=== PATIENT | female | born 1995 | race Caucasian/White ===

== ENCOUNTER 2017-05-06 08:51 | Outpatient (CLI) | payer OTHER | END 2017-05-06 08:52 | disposition critical access hospital (66) | LOC: EMS 08:51 | PROVIDERS: ATTEND Surgery | DX: O46.91 Antepartum hemorrhage, unspecified, first trimester (principal) | CPT/HCPCS: A0425; A0427 ==

== ENCOUNTER 2017-05-06 09:15 | Emergency (ER) | payer OTHER ==
--- NOTE | 2017-05-06 10:29 | ED Physician Documentation ---
PD HPI FEMALE - Stated complaint Stated Complaint: FEMALE /8WEEK PREG - Chief complaint Chief Complaint: Abd Pain - History obtained from History obtained from: Patient - History of Present Illness Timing - onset: How many weeks ago (1) Timing - duration: Weeks (1) Timing - details: Abrupt onset, Still present Associated symptoms: Pelvic pain, Vaginal bleeding Contributing factors: OB-INTERNAL AUDIT SENIOR MANAGER History: G (1), P (0) Similar symptoms before: Has not had sx before Recently seen: Not recently seen - Additional information Additional information: 21-year-old female who believes she is about 8 weeks has developed some spotting about 1 week ago and she is subsequently today developed some yves bleeding and cramping. She states that she did notice about a week ago that the breast tenderness that she was having seemed to recede. She is not having faintness. Review of Systems Constitutional: denies: Fever Nose: denies: Congestion Throat: denies: Sore throat Cardiac: denies: Chest pain / pressure Respiratory: denies: Cough GI: reports: Abdominal Pain. denies: Nausea, Vomiting : denies: Dysuria, Frequency PD PAST MEDICAL HISTORY - Past Medical History Past Medical History: No - Past Surgical History Past Surgical History: No - Present Medications Home Medications: Ambulatory Orders Medication Instructions Recorded Confirmed No Known Home Medications [No 05/06/17 05/06/17 Known Home Medications] - Allergies Allergies/Adverse Reactions: Allergies Allergy/AdvReac Type Severity Reaction Status Date / Time No Known Drug Allergies Allergy Verified 05/06/17 09:18 - Social History Does the pt smoke?: No Smoking Status: Never smoker Does the pt have substance abuse?: No PD ED PE NORMAL - Vitals Vital signs reviewed: Yes (Tachycardic and hypertensive) - General General: No acute distress, Well developed/nourished - HEENT HEENT: Atraumatic, PERRL, EOMI - Neck Neck: Supple, no meningeal sign - Cardiac Cardiac: RRR, No murmur - Respiratory Respiratory: No respiratory distress, Clear bilaterally - Abdomen Abdomen: Soft, Non tender - Back Back: No CVA TTP, No spinal TTP - Derm Derm: Normal color, Warm and dry, No rash - Extremities Extremities: No deformity, No edema - Neuro Neuro: No motor deficit, No sensory deficit - Psych Psych: Normal mood, Normal affect Results - Vitals Vitals: Vital Signs - 24 hr 05/06/17 05/06/17 05/06/17 09:15 09:43 11:52 Temperature 37.3 C 37.1 C Heart Rate 109 H 111 H Respiratory 18 18 Rate Blood Pressure 154/80 H 136/83 H O2 Saturation 98 98 Oxygen O2 Source Room air - Labs Labs: Laboratory Tests 05/06/17 05/06/17 11:15 11:40 HCG, Quant 1161.55 Urine Color YELLOW Urine Clarity CLEAR Urine pH 6.5 Ur Specific [place] <=1.005 Urine Protein NEGATIVE Urine Glucose (UA) NEGATIVE Urine Ketones NEGATIVE Urine Occult Blood LARGE H Urine Nitrite NEGATIVE Urine Bilirubin NEGATIVE Urine Urobilinogen 0.2 (NORMAL) Ur Leukocyte Esterase NEGATIVE Urine RBC 6-10 H Urine WBC 0-3 Ur Squamous Epith Cells FEW Squamous Urine Bacteria Few Ur Microscopic Review INDICATED Urine Culture Comments NOT INDICATED - Rads (name of study) Pelvic ultrasound Radiology: Prelim report reviewed (Impression: Tiny fluid collection in Endo, may be early gestational sac, but too early to see yolk sac or pole. Follow-up serial quantitative beta-hCG rescan in 2 weeks for viability if clinically indicated.), EMP read indepedently, See rad report PD MEDICAL DECISION MAKING - ED course Complexity details: reviewed results, re-evaluated patient, considered differential, d/w patient ED course: 21-year-old female with early as bleeding and cramping consistent with early miscarriage and she has findings on her ultrasound to suggest a may be in the uterus and we will follow quantitative hCG. I suspect with the patient's reduction in breast tenderness that this is a miscarriage. Departure - Departure Disposition: 01 Home, Self Care Clinical Impression: Threatened Instructions: ED Miscarriage Poss Follow-Up: Joellen Schwartz ARNP [Primary Care Provider] - Comments: Today there was a tiny fluid collection seen in the uterus and may be an early . Too early to see. Alternatively miscarriage may be in process. A second quantitative hCG should be obtained in the next 2 days. Follow-up with your appointment as scheduled.
[2017-05-06 11:53] VITALS: BP 136/83
--- NOTE | 2017-05-06 11:57 | Ultrasound Report ---
FIRST TRIMESTER OB ULTRASOUND WITH TRANSVAGINAL: 05/06/2017 CLINICAL INDICATION: Early , bleeding, cramping. TECHNIQUE: Transabdominal pelvic ultrasound performed for global evaluation. Transvaginal pelvic ultr asound performed for detailed evaluation. Real-time scanning performed and static images obtained. FINDINGS: The uterus is anteverted, measuring 8.3 x 5.2 x 3.9 cm. There is a small fluid collection in the endometrium, which may represent an early gestational sac. Mean sac diameter is 6 mm, too smal l to visualize yolk sac or pole. No free fluid is present. The right ovary measures 2.7 x 2.0 x 1.3 cm, and appears unremarkable. The left ovary measures 2.3 x 2.1 x 1.6 cm, and demonstrates an 1. 5 cm follicle. IMPRESSION: TINY FLUID COLLECTION WITHIN THE ENDOMETRIAL CANAL, WHICH MAY REPRESENT AN EARLY GESTATI ONAL SAC, TOO EARLY TO VISUALIZE YOLK SAC OR POLE. RECOMMEND FOLLOWUP SERIAL QUANTITATIVE BETA- HCG, AND RE-SCAN IN TWO WEEKS FOR VIABILITY, IF CLINICALLY WARRANTED. JOB #: [id number] EXT JOB #:[id number]
[2017-05-06 12:06] LABS: BILIRUBIN,URINE NEGATIVE (NEGATIVE); PH,URINE 6.5 PH (5.0-7.5)
[2017-05-06 12:22] LABS: UA w/ MICROSCOPIC CHARGE YES
[2017-05-06 12:24] LABS: WBC,URINE 0-3 /HPF (0-5)
[2017-05-06 12:25] LABS: UR CULTURE IF IND NOT INDICATED
== END 2017-05-06 12:27 | disposition home or self-care (01) ==
LOC: ED 09:15
DX: O20.0 Threatened abortion (principal); Z3A.08 8 weeks gestation of pregnancy
CPT/HCPCS: 76801; 76817; 81001; 81003; 84702; 87086; 99283

== ENCOUNTER 2017-11-27 15:10 | Outpatient (CLI) | payer OTHER | END 2017-11-27 15:11 | disposition home or self-care (01) | LOC: LAB.R 15:10 | PROVIDERS: ATTEND Registered Nurse | DX: Z36.9 Encounter for antenatal screening, unspecified (principal) | CPT/HCPCS: 87491; 87591 ==

== ENCOUNTER 2017-12-18 14:09 | Outpatient (CLI) | payer OTHER ==
[2017-12-18 14:38] LABS: BASOPHILS # (AUTO) 0.1 10^3/uL (0.0-0.1); BASOPHILS % (AUTO) 0.7 %; EOSINOPHILS # (AUTO) 0.1 10^3/uL (0.0-0.7); EOSINOPHILS % (AUTO) 0.5 %; HGB - HEMOGLOBIN 12.6 g/dL (12.0-16.0); LYMPHOCYTES % (AUTO) 18.4 %; MEAN CORPUSCULAR HEMOGLOBIN 31.9 pg (27.0-31.0); MEAN CORPUSCULAR HGB CONC 34.1 g/dL (32.0-36.0); MEAN CORPUSCULAR VOLUME 93.4 fL (81.0-99.0); MEAN PLATELET VOLUME 8.8 fL (7.9-10.8); MONOCYTES # (AUTO) 1.1 10^3/uL (0.0-1.0); MONOCYTES % (AUTO) 10.4 %; NEUTROPHILS # (AUTO) 7.5 10^3/uL (1.5-6.6); PLT - PLATELET COUNT 261 10^3/uL (130-450); RED BLOOD COUNT 3.94 10^6/uL (4.20-5.40); RED CELL DISTRIBUTION WIDTH 13.4 % (12.0-15.0); WHITE BLOOD COUNT 10.7 x10^3/uL (4.8-10.8)
[2017-12-18 14:39] LABS: BILIRUBIN,URINE NEGATIVE (NEGATIVE); GLUCOSE, URINE (UA) NEGATIVE (NEGATIVE); KETONES,URINE (UA) NEGATIVE (NEGATIVE); LEUKOCYTE ESTERASE, URINE NEGATIVE (NEGATIVE); NITRITE,URINE NEGATIVE (NEGATIVE); OCCULT BLOOD,URINE NEGATIVE (NEGATIVE); PH,URINE 7.5 PH (5.0-7.5); PROTEIN,URINE NEGATIVE (NEGATIVE); UROBILINOGEN,URINE 0.2 (NORMAL) E.U./dL (NORMAL)
[2017-12-18 14:41] LABS: CLARITY,URINE CLEAR (CLEAR)
[2017-12-18 14:48] LABS: BACTERIA,URINE Moderate /HPF (None Seen); RBC,URINE 0-5 /HPF (0-5); SQUAMOUS EPITHELIAL CELL,UR FEW Squamous (<= Few)
[2017-12-19 15:47] LABS: HEPATITIS C ANTIBODY NON-REACTIVE (NON-REACTIVE)
[2017-12-19 17:01] LABS: HIV AG/AB 4TH GEN NON-REACTIVE (NON-REACTIVE)
[2017-12-19 18:06] LABS: HEPATITIS B SURFACE ANTIGEN NON-REACTIVE (NON-REACTIVE)
== END 2017-12-18 14:10 | disposition home or self-care (01) ==
LOC: LAB 14:09
PROVIDERS: ATTEND Registered Nurse
DX: Z36.9 Encounter for antenatal screening, unspecified (principal)
CPT/HCPCS: 36415; 81001; 81599; 85025; 86592; 86762; 86803; 86850; 86900; 86901; 87340; 87389

== ENCOUNTER 2017-12-30 14:32 | Outpatient (CLI) | payer OTHER ==
[2017-12-30 18:47] LABS: MUDS CUTOFF CONCENTRATIONS CUTOFF CONC BELOW:
[2017-12-30 19:15] LABS: AMPHETAMINE SCREEN,URINE NEGATIVE (NEGATIVE); BENZODIAZEPINES SCREEN, URINE NEGATIVE (NEGATIVE); COCAINE SCREEN URINE NEGATIVE (NEGATIVE); METHADONE SCREEN, URINE NEGATIVE (NEGATIVE); METHAMPHETAMINES SCREEN, URINE NEGATIVE (NEGATIVE); OPIATE SCREEN, URINE NEGATIVE (NEGATIVE); OXYCODONE SCREEN, URINE NEGATIVE (NEGATIVE); PROPOXYPHENE SCREEN, URINE NEGATIVE (NEGATIVE); TRICYCLIC ANTIDEPRESSANT,URINE NEGATIVE (NEGATIVE)
== END 2017-12-30 14:33 | disposition home or self-care (01) ==
LOC: LAB.R 14:32
PROVIDERS: ATTEND Nurse Practitioner Obstetrics & Gynecology
DX: Z36.9 Encounter for antenatal screening, unspecified (principal)
CPT/HCPCS: 80306

== ENCOUNTER 2018-02-01 07:22 | Outpatient (CLI) | payer OTHER ==
--- NOTE | 2018-02-01 10:37 | Ultrasound Report ---
Procedure Date: 02/01/2018 Accession Number: [id number] / [id number] Procedure: US - OB Detailed Eval CPT Code: FULL RESULT: EXAM: OB Detailed Eval DATE: 02/01/2018 9:44 AM CLINICAL HISTORY: ENCTR FOR SCREENING TECHNIQUE: Real-time scanning was performed with player services representative static images obtained. COMPARISON: None Clinical Age: 20 weeks 0 days US Age: 20 weeks 3 days EFW Hadlock: 364 grams Heart Rate: 148 bpm EDC: 06/21/2018 US EDC: 06/18/2018 BPD Hadlock: 20 weeks 3 days; Mean mm 48 HC Hadlock: 20 weeks 0 days; Mean mm 175 AC Hadlock: 21 weeks 3 days; Mean mm 164 FL Hadlock: 19 weeks 5 days; Mean mm 31 Presentation: Cephalic Placental Location: Posterior Cervical Length: 4.60 cm Amniotic Fluid: JEREMIAS Subjectively normal; MVP 4.5 cm FINDINGS: There is a single viable intrauterine gestation, in cephalic presentation. heart rate is 148 BPM. The placenta is posterior, without evidence of previa. Amniotic fluid volume is subjectively normal, with an deepest pocket of 4.5 cm. No free fluid or adnexal lesion is appreciated. The following anatomic structures were visualized and appear normal: The intracranial contents, including the ventricles and posterior fossa; the lips and orbits; the spine; the heart, including 4 chamber view and outflow tracts, and diaphragm; the abdominal contents, including the stomach, the bilateral kidneys, and urinary bladder, as well as a normal 3-vessel cord insertion; 4 limbs. IMPRESSION: Single viable intrauterine gestation, with size in keeping with stated dates. Normal anatomic survey.
== END 2018-02-01 07:23 | disposition home or self-care (01) ==
LOC: DI 07:22
PROVIDERS: ATTEND Nurse Practitioner Obstetrics & Gynecology
DX: Z36.9 Encounter for antenatal screening, unspecified (principal)
CPT/HCPCS: 76811

== ENCOUNTER 2018-03-19 10:59 | Outpatient (CLI) | payer OTHER ==
[2018-03-19 13:14] LABS: HGB - HEMOGLOBIN 11.2 g/dL (12.0-16.0); MEAN CORPUSCULAR HEMOGLOBIN 33.2 pg (27.0-31.0); MEAN CORPUSCULAR HGB CONC 34.2 g/dL (32.0-36.0); MEAN PLATELET VOLUME 9.1 fL (7.9-10.8); RED BLOOD COUNT 3.37 10^6/uL (4.20-5.40)
== END 2018-03-19 11:00 | disposition home or self-care (01) ==
LOC: LAB 10:59
PROVIDERS: ATTEND Registered Nurse
DX: Z34.82 Encounter for supervision of other normal pregnancy, second trimester (principal)
CPT/HCPCS: 36415; 82950; 85027; 86850

== ENCOUNTER 2018-05-31 16:00 | Outpatient (CLI) | payer OTHER | END 2018-05-31 16:01 | disposition home or self-care (01) | LOC: LAB.R 16:00 | PROVIDERS: ATTEND Nurse Practitioner Obstetrics & Gynecology | DX: Z36.85 Encounter for antenatal screening for Streptococcus B (principal) | CPT/HCPCS: 87797 ==

== ENCOUNTER 2018-05-31 16:06 | Outpatient (CLI) | payer OTHER ==
[2018-05-31 16:42] LABS: HGB - HEMOGLOBIN 11.8 g/dL (12.0-16.0); MEAN CORPUSCULAR HEMOGLOBIN 32.6 pg (27.0-31.0); MEAN CORPUSCULAR HGB CONC 33.8 g/dL (32.0-36.0); MEAN CORPUSCULAR VOLUME 96.6 fL (81.0-99.0); RED BLOOD COUNT 3.61 10^6/uL (4.20-5.40); RED CELL DISTRIBUTION WIDTH 12.7 % (12.0-15.0)
[2018-05-31 16:53] LABS: ALBUMIN 3.1 g/dL (3.2-5.5); ALBUMIN/GLOBULIN RATIO 0.9 (1.0-2.2); BILIRUBIN,TOTAL 0.4 mg/dL (0.2-1.0); CREATININE 0.5 mg/dL (0.4-1.0); TOTAL PROTEIN 6.5 g/dL (6.7-8.2)
[2018-05-31 17:00] LABS: CREATININE,URINE 30.9 mg/dL
[2018-05-31 18:59] LABS: TOTAL PROTEIN,URINE TIMED < 6 mg/dL
== END 2018-05-31 16:07 | disposition home or self-care (01) ==
LOC: LAB 16:06
PROVIDERS: ATTEND Nurse Practitioner Obstetrics & Gynecology
DX: L29.8 Other pruritus (principal); Z36.85 Encounter for antenatal screening for Streptococcus B
CPT/HCPCS: 36415; 80053; 82239; 82570; 84156; 85027; 87797

== ENCOUNTER 2018-06-07 16:19 | Outpatient (CLI) | payer OTHER ==
[2018-06-07 16:42] VITALS: BP 126/74
== END 2018-06-07 16:46 | disposition home or self-care (01) ==
LOC: WFO 16:19 → FBP 16:21 → WFO 16:46
PROVIDERS: ATTEND Registered Nurse
DX: O26.613 Liver and biliary tract disorders in pregnancy, third trimester (principal); K83.1 Obstruction of bile duct; Z3A.38 38 weeks gestation of pregnancy
CPT/HCPCS: 59025

== ENCOUNTER 2018-06-08 08:08 | Inpatient (IN) | payer OTHER ==
[2018-06-08] MEDS ORDERED: SODIUM CHLORIDE FLUSH 0.9% 10 ML SYRINGE IVP PRN (09:07)
[2018-06-08] MEDS ORDERED: fentaNYL 100 MCG/2 ML VIAL IVP PRN (09:07)
[2018-06-08] MEDS ORDERED: ONDANSETRON 4 MG/2 ML VIAL IVP PRN (09:07)
[2018-06-08] MEDS: SODIUM CHLORIDE FLUSH 0.9% 10 ML SYRINGE IVP SCH ×3 (09:28→21:39)
[2018-06-08 09:45] LABS: BASOPHILS # (AUTO) 0.1 10^3/uL (0.0-0.1); BASOPHILS % (AUTO) 0.6 %; EOSINOPHILS # (AUTO) 0.2 10^3/uL (0.0-0.7); EOSINOPHILS % (AUTO) 2.2 %; HGB - HEMOGLOBIN 11.8 g/dL (12.0-16.0); LYMPHOCYTES # (AUTO) 1.4 10^3/uL (1.5-3.5); LYMPHOCYTES % (AUTO) 13.8 %; MEAN CORPUSCULAR HEMOGLOBIN 33.4 pg (27.0-31.0); MEAN CORPUSCULAR HGB CONC 34.8 g/dL (32.0-36.0); MEAN CORPUSCULAR VOLUME 95.9 fL (81.0-99.0); MEAN PLATELET VOLUME 10.2 fL (7.9-10.8); MONOCYTES # (AUTO) 1.5 10^3/uL (0.0-1.0); NEUTROPHILS % (AUTO) 68.4 %; PLT - PLATELET COUNT 185 10^3/uL (130-450); RED BLOOD COUNT 3.53 10^6/uL (4.20-5.40); RED CELL DISTRIBUTION WIDTH 12.8 % (12.0-15.0); WHITE BLOOD COUNT 10.3 x10^3/uL (4.8-10.8)
[2018-06-08] MEDS: miSOPROStol 100 MCG TABLET BC SCH ×4 (09:49→21:36)
[2018-06-08] MEDS: LACTATED RINGERS 1,000 ML IV SCH (09:56)
[2018-06-08 09:59] LABS: ALBUMIN 2.8 g/dL (3.2-5.5); ALBUMIN/GLOBULIN RATIO 0.9 (1.0-2.2); BILIRUBIN,TOTAL 0.5 mg/dL (0.2-1.0); CALCIUM 8.7 mg/dL (8.5-10.3); CREATININE 0.5 mg/dL (0.4-1.0)
[2018-06-08] MEDS ORDERED: PENICILLIN G POTASSIUM 5,000,000 UNIT in SODIUM CHLORIDE 0.9% MINIBAG 100 ML IV ONE (10:00)
[2018-06-08] MEDS ORDERED: OXYTOCIN/SODIUM CHLORIDE 500 ML IV SCH (10:00)
--- NOTE | 2018-06-08 10:21 | HISTORY & PHYSICAL EXAMINATION ---
Admit History - Visit Reason Visit Reason: Other (preinduction cervical ripening for intrahepatic cholestasis of ) - : 2 Parity: 0 Premature: 0 Ectopic: 0 : 1 Care: positive: [facility] (beginning @ 10 weeks' EGA x10 total visits) Complications This : positive: Other (intrahepatic cholestasis of w/ onset @ 37 weeks, dx'ed @ 38 weeks' gestation, TBA 21) Smoking Status: Never smoker - Mother's Labs Mother's Blood Type: positive: AB Mother's RH: positive: Negative GBS: positive: Group B Strep Positive Rubella Status: positive: Immune Meds/Allgy - Home Medications Home Medications: Ambulatory Orders Medication Instructions Recorded Confirmed No Known Home Medications 05/06/17 05/06/17 - Allergies Allergies/Adverse Reactions: Allergies Allergy/AdvReac Type Severity Reaction Status Date / Time No Known Drug Allergies Allergy Verified 05/06/17 09:18 Review of Systems - Constitutional Constitutional: denies: Fatigue, Fever, Chills - Eyes Eyes: denies: Blurred vision, Spots in vision - Cardiovascular Cariovascular: denies: Irregular heart rate, Palpitations, Chest pain - Respiratory Respiratory: denies: Cough, Wheezing, SOB at rest, SOB with exertion - Gastrointestinal Gastrointestinal: denies: Abdominal pain, Constipation, Diarrhea, Nausea, Vomiting, Reflux/heartburn - Genitourinary Genitourinary: denies: Dysuria, Frequency, Urgency - Musculoskeletal Musculoskeletal: denies: Muscle pain, Back pain, Muscle aches - Integumentary Integumentary: denies: Rash, Pruritis, Lesions, Dryness - Neurological Neurological: denies: General weakness, Focal weakness, Headache, Dizziness - Psychiatric Psychiatric: denies: Depression, Anxiety - All Other Systems All Other Systems: reports: Reviewed and negative Physical - Abdominal Exam Contraction Frequency (min/apart): rare Contraction Intensity: positive: Mild Uterine Resting Tone: positive: Soft - Monitoring Heart Rate Baseline: 135 Strip Review: positive: Category I - Presentation Presentation: positive: Vertex - Vaginal Exam Membranes: positive: Membranes intact Dilation (in cm): closed Effacement (%): 25% Station: positive: -3 Cervical Position: positive: Posterior - Speculum Exam Speculum Exam Performed: positive: No Findings: negative: Gross leak - Other Notes Labor Progress Note/Additional Text: Ann Fischer is a 22 y/o @ 38w1d by first trimester US who received consistent care beginning @ 10 weeks' gestation x10 total visits. Her care was affected by her negative Rh status, for which she received Rhogam @ 28 weeks' gestation; she had no bleeding throughout the course of her . She reported pruritus @ 37 weeks' gestation & had screening for intrahepatic cholestasis of , which resulted in normal LFTs & TBA 21. She screened positive for GBS @ 37 weeks' gestation. We reviewed intrahepatic cholesatsis of & maternal/ implications, as well as recommendation for induction of labor & use of ursodiol. PARQ held. 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, unsure whether she will return to work s/p delivery, expecting a male fetus Famhx: Noncontributory PE: GEN: AAOX3, NAD WA GRAVID FEMALE HEENT: GROSSLY NORMOCEPHALIC, ATRAUMATIC, +CORRECTIVE LENSES RESP: CTA B/L T/O CARD: RRR NLS1S2, NO MURUMUR ABD: GRAVID, NT, PALPABLE MOVEMENT, LIE LONGITUDINAL, PRESENTATION CEPHALIC, EFW 8# OB: RARE CONTRACTIONS, SVE CL/25%/HIGH/FIRM/POSTERIOR, IBOW, EFM: BL 135BPM, +ACCELS, NO DECELS, MOD PRISCA, CAT I : NO LESION, IBOW MS: FROM T/O, NO DEFORMITY, NO EDEMA, NO ERYTHEMA SKIN: WARM, WELL-PERFUSED, C/D/I, NO LESION, ABDOMINAL STRIAE NEURO: NO FOCAL DEFICIT PSYCH: PLEASANTLY CONVERSANT, NORMAL MOOD & AFFECT Plan for Labor - Plan For Labor I expect patient to be DC'd or transferred within 96 hours.: Yes Plan for Labor: 1. Admit to obs for preinduction cervical ripening for induction of labor for intrahepatic cholestasis of 2. ursodiol 500mg po BID 3. CMP w/ admit labs (cbc/clot to hold) to ensure stability of LFTs 4. misoprostol 50mcg BC q 4 hours per protocol 5. initiate IPAP per protocol for +GBS status 6. Pt aware of anesthesia/analgesia options, intends unmedicated delivery 7. CEFM 8. Reassess cervical status w/ clear clinical indication
--- NOTE | 2018-06-08 13:07 | CONSULTATION NOTE ---
DATE OF CONSULTATION : 06/08/2018 Physician: Cecy Grey DO FACOG IDENTIFICATION: A 22-year-old G2, P0-0-1-0, 38 and 1/7 week intrauterine . EDC is 06/21/2018 changed by 10-week ultrasound. HISTORY OF PRESENT ILLNESS: The patient is a patient of [facility]. She has been seeing our midwives consistently throughout her . The patient's has been unremarkable up to her visit on 05/31/2018 at 37 weeks, 0 days. The patient at that time began noting a new onset of significant abdominal itching and bumps on her abdomen. Total bile acids were drawn on 05/31/2018 which returned elevated at 21 micromoles per liter. Due to the patient's elevated bile acids, I am in agreement with Curry that we should proceed to delivery due to increased risk of demise secondary to cholestasis of . Currently, the patient is sitting in the chair and eating lunch. Her significant other is at the bedside. The patient states that she is feeling some contractions. She is excited to meet her baby. PAST MEDICAL HISTORY: None. PAST SURGICAL HISTORY: None. ALLERGIES: NO KNOWN DRUG ALLERGIES. MEDICATIONS: vitamins. Status post RhoGAM and Tdap on 04/13/2018. SOCIAL HISTORY: She denies any current alcohol or illicit drug use. She denies any tobacco use. Significant other's name is Nick and this is a little baby boy with anticipated name of Moises. PAST OBSTETRICAL HISTORY: Currently the patient is Rh negative and received her U-tox. She is GBS positive. Again she has been diagnosed with cholestasis of given an elevated total bile acids of 21. PAST GYNECOLOGICAL HISTORY: She denies any abnormal Paps or sexually transmitted diseases. REVIEW OF SYSTEMS: Negative unless otherwise noted. PHYSICAL EXAMINATION VITAL SIGNS: Stable. She is afebrile. GENERAL: The patient is a well-developed, well-nourished, female, in no apparent distress. She is alert and oriented x3. Gravid, nontender. Estimated weight 7-1/2 pounds. LABORATORY DATA: Reveal that she is AB negative. Antibody screen is negative, GC/CT are both negative, HIV negative. RPR nonreactive, rubella immune. Hepatitis B surface antigen is nonreactive. One-hour GTT is 105. Antibody screen is negative and GBS is positive. anatomical survey shows cervical length of 4.6 cm, MVP 4.5 cm, consistent with dates and within normal limits. Placenta is posterior without evidence of previa. A 3-vessel umbilical cord is noted. ASSESSMENT AND PLAN 1. 22-year-old G2, P0-0-1-0, 38-1/7 week intrauterine . 2. Cholestasis of . 3. Rh negative. 4. Group B streptococcus positive. PLAN: Will be available for help should Ms. Zapien need it. Recommend induction of labor and a routine obstetrical care. TD: 06/08/2018 12:29 AUTUMN
[2018-06-08] MEDS: PENICILLIN G POTASSIUM 2,500,000 UNIT in SODIUM CHLORIDE 0.9% 100ML 100 ML IV SCH ×3 (14:00→21:37)
--- NOTE | 2018-06-08 14:06 | PROVIDER PROGRESS NOTE ---
Labor Progress Note - Uterine Monitoring Uterine Monitoring Mode: positive: External toco Contraction Frequency (min/apart): 3-4 Contraction Intensity: positive: Mild Uterine Resting Tone: positive: Soft - Monitoring Monitor Mode: positive: External ultrasound Heart Rate Baseline: 145 Heart Rate Variability: positive: Moderate (6-25 bmp) Accelerations: positive: Present, 15x15 Decelerations: positive: None Strip Review: positive: Category I - Vaginal Exam Dilation (in cm): deferred for no clinical indication - Labor Progress Note Labor Progress Note/Additional Text: S: Ann is doing well, reporting tightening, no persistent discomfort. No desire for analgesia. O: AAOx3, NAD WA gravid female VSS EFM BL 145bpm, +accels, no decels, mod irma TOCO: UCs q3-4 min x60 sec, palp mild SVE deferred secondary to no clinical indication A: 22 y/o @ 38w1d by first trimeter US, preinduction cervical ripening for IOL for intrahepatic cholestasis of w/ normal LFTs GBS pos s/p 1 dose PCN for prophylaxis s/p 1 dose of misoprostol for cervical ripening, unfavorable cervical status FHTs cat I IBOW Erratic contraction pattern Adequate pain control w/o analgesia/anesthesia P: 1. Continue misoprostol 50mcg BC q 4 hours per protocol & orders 2. Continue PCN for IPAP per protocol 3. Continue ursodiol 500mg po BID per orders 4. CEFM 5. Analgesia/anesthesia PRN per pt request; pt aware of all available modalities of pain management 6. Reassess cervical status only w/ clear clinical indication 7. Encourage maternal diversionary activity
--- NOTE | 2018-06-08 15:52 | PROVIDER PROGRESS NOTE ---
Labor Progress Note - Uterine Monitoring Uterine Monitoring Mode: positive: External toco Contraction Frequency (min/apart): 1-2 Contraction Intensity: positive: Mild to moderate Uterine Resting Tone: positive: Soft - Monitoring Monitor Mode: positive: External ultrasound Heart Rate Baseline: 145 Heart Rate Variability: positive: Moderate (6-25 bmp) Accelerations: positive: Present, 15x15 Decelerations: positive: None Strip Review: positive: Category I - Vaginal Exam Dilation (in cm): not indicated - Labor Progress Note Labor Progress Note/Additional Text: S: Ann reports tightening & some cramping 3/10 w/ uterine contractions. No desire for analgesia/anesthesia @ this time. O: AAOx3, NAD WA gravid female VSS EFM: BL 145bpm, + accels, no decels, mod irma TOCO: UCs q 1-2 min x40-60 seconds, palp mild to mod per RN SVE deferred secondary to no clinical indication A: 22 y/o @ 38w1d by first trimester US, preinduction cervical ripening for induction of labor for intrahepatic cholestasis of s/p 2 doses buccal misoprostol, now w/ regular contraction pattern, mild to moderate intensity GBS + w/ IBOW, s/p 2 doses PCN for IPAP LFTs WNL, pruritus manageable FHTs cat I Adequate pain control w/o analgesia/anesthesia, desires unmedicated delivery P: 1. continue misoprostol 50mcg BC q 4 hours per orders & protocol, if dannie q1-2 min @ next dosing interval, hold until contractions space, then administer 2. continue PCN for IPAP per orders & protocol 3. continue ursodiol per orders 4. analgesia/anesthesia PRN per pt request 5. cervical assessment only w/ clear clinical indication 6. continue CEFM
[2018-06-08] MEDS: URSODIOL 250 MG TABLET PO SCH (16:34)
[2018-06-08] MEDS ORDERED: ZOLPIDEM 5 MG TABLET PO PRN (18:34)
[2018-06-08] MEDS ORDERED: hydrOXYzine PAMOATE 25 MG CAPSULE PO PRN (18:39)
[2018-06-09] MEDS: PENICILLIN G POTASSIUM 2,500,000 UNIT in SODIUM CHLORIDE 0.9% 100ML 100 ML IV SCH ×5 (02:03→18:40)
[2018-06-09] MEDS: SODIUM CHLORIDE FLUSH 0.9% 10 ML SYRINGE IVP SCH (02:04)
[2018-06-09] MEDS ORDERED: fent/BUPIV 2 MCG/0.125% 250 ML EP ONE ×2 (07:56→19:18)
[2018-06-09] MEDS ORDERED: ROPIVACAINE 0.2% PF 20 ML AMPULE ONE ×3 (07:57→10:43)
--- NOTE | 2018-06-09 08:23 | PROVIDER PROGRESS NOTE ---
Labor Progress Note - Uterine Monitoring Uterine Monitoring Mode: positive: External toco Contraction Frequency (min/apart): 1-3 Contraction Intensity: positive: Mild Uterine Resting Tone: positive: Soft - Monitoring Monitor Mode: positive: External ultrasound Heart Rate Baseline: 135 Heart Rate Variability: positive: Moderate (6-25 bmp) Accelerations: positive: Present, 15x15 Decelerations: positive: None Strip Review: positive: Category I - Vaginal Exam Dilation (in cm): deferred - Labor Progress Note Labor Progress Note/Additional Text: Called by RN to inquire about plan of care secondary to frequent contractions; FHTs cat I. Pt does not desire analgesia/anesthesia. 3rd dose of IV PCN for IPAP running. Pt may have sleep aid this pm if she desires. Hold miso for now & administer as contractions space. No indication for cervical evaluation @ this time.
--- NOTE | 2018-06-09 08:28 | PROVIDER PROGRESS NOTE ---
Labor Progress Note - Uterine Monitoring Uterine Monitoring Mode: positive: External toco Contraction Frequency (min/apart): 3-5 Contraction Intensity: positive: Mild Uterine Resting Tone: positive: Soft - Monitoring Monitor Mode: positive: External ultrasound Heart Rate Baseline: 140 Heart Rate Variability: positive: Moderate (6-25 bmp) Accelerations: positive: Present, 15x15 Decelerations: positive: None Strip Review: positive: Category I - Vaginal Exam Dilation (in cm): deferred - Labor Progress Note Labor Progress Note/Additional Text: S: Ann is coping well w/ her contractions, reports some mild discomfort. No complaints otherwise. No LOF/VB. O: AAOx3, NAD WA gravid female FHTs cat I: BL 140bpm, mod irma, +accels TOCO: UCs q 3-5 SVE deferred secondary to no indication A: 22 y/o @ 38w1d, s/p 2 doses buccal misoprostol for preinduction cervical ripening for induction of labor secondary to intrahepatic cholestasis of GBS pos, IBOW, s/p 3 doses IV PCN for prophylaxis FHTs cat I Adequate pain control w/o analgesia/anesthesia P: 1. Administer misoprostol now & continue q 4 hrs per orders 2. Continue GBS prophylaxis w/ IV PCN per protocol for IPAP 3. Pt may have sleep aid as desired 4. Analgesia/anesthesia PRN per pt request
--- NOTE | 2018-06-09 08:31 | PROVIDER PROGRESS NOTE ---
Labor Progress Note - Uterine Monitoring Uterine Monitoring Mode: positive: External toco Contraction Frequency (min/apart): 2-3 Contraction Intensity: positive: Moderate Uterine Resting Tone: positive: Soft - Monitoring Monitor Mode: positive: External ultrasound Heart Rate Baseline: 140 Heart Rate Variability: positive: Moderate (6-25 bmp) Accelerations: positive: Present, 15x15 Decelerations: positive: None Strip Review: positive: Category I - Vaginal Exam Dilation (in cm): deferred - Labor Progress Note Labor Progress Note/Additional Text: S: Ann is doing well, although she is tired; reports leakage of fluid, nitrazine pos O: AAOx3, NAD WA gravid female, VSS EFM: BL 140bpm, +accels, no decels, mod irma TOCO: UCs q3-4 min, palp mod SVE deferred; SROM for CAF A: 22 y/o @ 38w2d by first trimester US, preinduction cervical ripening s/p 3 doses misoprostol for induction of labor secondary to cholestasis of GBS pos s/p 4 doses IV PCN for prophylaxis SROM for CAF FHTs cat I Adequate pain control w/o analgesia/anesthesia, unable to sleep, declines sleep aid P: 1. Continue misoprostol per orders q 4 hours 2. Continue PCN for IPAP per protocol 3. Continue BID ursodiol dosing 4. Reassess cervical status w/ clinical change
--- NOTE | 2018-06-09 08:36 | PROVIDER PROGRESS NOTE ---
Labor Progress Note - Uterine Monitoring Uterine Monitoring Mode: positive: External toco Contraction Frequency (min/apart): 2-4 Contraction Intensity: positive: Moderate to strong Uterine Resting Tone: positive: Soft - Monitoring Monitor Mode: positive: External ultrasound Heart Rate Baseline: 145 Heart Rate Variability: positive: Moderate (6-25 bmp) Accelerations: positive: Present, 15x15 Decelerations: positive: None Strip Review: positive: Category I - Vaginal Exam Dilation (in cm): 4 Effacement (%): 90 Station: 0 Cervical Position: Midposition (per RN) - Labor Progress Note Labor Progress Note/Additional Text: S: Ann is crying w/ contractions, sobbing, saying she cannot continue; she has been in the tub, she has used nitrous w/o much effect. Her is present @ the bedside & is supportive; does think she would now like an epidural O: AAOx3, tearful, gravid female, exhausted & in pain VSS EFM BL 145bpm, +accels, no decels, mod irma TOCO: UCs q2-4 min, palp strong SVE 4/90/0 per RN, soft, midposition, leaking CAF A: 22 y/o @ 38w2d by first trimester US, s/p 3 doses of buccal misoprostol for effective cervical ripening Induction of labor for intrahepatic cholestasis of FHTs cat I SROM x7 hours for CAF; GBS pos s/p 5 doses IV PCN for IPAP Inadequate pain control w/ use of NO2, hydrotherapy P: 1. Reviewed pain management options & pt elects epidural @ this time 2. Continue IV PCN per protocol for IPAP 3. Reassess cervical status x2 hours; if no change, begin Pitocin infusion & titrate per protocol to maintain adequate contraction pattern by tocometry 4. Continue BID ursodiol 5. Encouraged maternal rest
[2018-06-09] MEDS: LACTATED RINGERS 1,000 ML IV SCH ×2 (09:27→15:09)
[2018-06-09] MEDS: URSODIOL 250 MG TABLET PO SCH (10:05)
--- NOTE | 2018-06-09 12:28 | PROVIDER PROGRESS NOTE ---
Labor Progress Note - Uterine Monitoring Uterine Monitoring Mode: positive: External toco Contraction Frequency (min/apart): 3-5 Contraction Intensity: positive: Moderate to strong Uterine Resting Tone: positive: Soft - Monitoring Monitor Mode: positive: External ultrasound Heart Rate Baseline: 145 Heart Rate Variability: positive: Moderate (6-25 bmp) Accelerations: positive: Present, 15x15 Decelerations: positive: None - Vaginal Exam Dilation (in cm): 5 Effacement (%): 100 Station: 0 Cervical Position: Midposition - Labor Progress Note Labor Progress Note/Additional Text: TC from BS RN regarding pain control, which has been suboptimal since epidural placement this am; apparently, no anesthesia provider available for assessment/evaluation of epidural, which is not working for anesthesia as pt expected & desires. Requested that RN contact warehouse manager to access anesthesia provider to optimize pain management, as no longer within my clinical capacity to manage. Pt may not use IV opioids or nitrous w/ active epidural in place & infusing. RN agreed to contact warehouse manager to secure anesthesia provider for evaluation LETA. Pitocin infusion ordered but not yet administered secondary to suboptimal pain management. Will initiate s/p evaluation by anesthesia.
[2018-06-09] MEDS ORDERED: fentaNYL 100 MCG/2 ML VIAL ONE (12:33)
--- NOTE | 2018-06-09 16:12 | PROVIDER PROGRESS NOTE ---
Labor Progress Note - Uterine Monitoring Uterine Monitoring Mode: positive: External toco Contraction Frequency (min/apart): 4-5 Contraction Intensity: positive: Moderate to strong Uterine Resting Tone: positive: Soft - Monitoring Monitor Mode: positive: External ultrasound Heart Rate Baseline: 145 Heart Rate Variability: positive: Moderate (6-25 bmp) Accelerations: positive: Present, 15x15 Decelerations: positive: None Strip Review: positive: Category I - Vaginal Exam Dilation (in cm): 7 Effacement (%): 90 Station: -1 (per RN) Cervical Position: Midposition - Labor Progress Note Labor Progress Note/Additional Text: S: Ann reports ongoing discomfort in a particular spot despite epidural placement. O: AAOx3, NAD WA gravid T 98.3, HR 122, RR 18, BP 130/70 EFM: BL 145bpm, +accels, no decels, mod rima TOCO: UCs x4-5 min x60 seconds SVE per RN /-1 Pitocin infusing x30 minutes @ 2mU/min A: 22 y/o @ 38w2d s/p effective prostaglandin cervical ripening w/ 3 doses buccal misoprostol, induction of labor for intrahepatic cholestasis of LFTs WNL Suboptimal pain control w/ epidural anesthesia Progressive cervical change w/ Pitocin augmentation FHTs cat I SROM x14 hours, afebrile, GBS pos, IV PCN for prophylaxis, ongoing P: 1. Continue to titrate Pitocin infusion per protocol to achieve adequate labor pattern by tocometry 2. Reassess cervical status 2 hours s/p achievement of adequate labor pattern by tocometry; IUPC insertion if no cervical change @ that time 3. Anesthesia to assess pt to optimize pain management 4. Continue IV PCN for IPAP per protocol 5. Reviewed optimal maternal positioning to facilitate descent 6. Encouraged maternal rest
--- NOTE | 2018-06-09 17:49 | PROVIDER PROGRESS NOTE ---
Labor Progress Note - Uterine Monitoring Uterine Monitoring Mode: positive: External toco Contraction Frequency (min/apart): 2-3 Contraction Intensity: positive: Strong Uterine Resting Tone: positive: Soft - Monitoring Monitor Mode: positive: External ultrasound Heart Rate Baseline: 150 Heart Rate Variability: positive: Moderate (6-25 bmp) Accelerations: positive: Present, 15x15 Decelerations: positive: None Strip Review: positive: Category I - Vaginal Exam Dilation (in cm): 10 Effacement (%): 100 Station: 0 Cervical Position: Midposition - Labor Progress Note Labor Progress Note/Additional Text: S: Ann is doing well, comfortable w/ epidural, reports pressure w/ uterine contractions. Would like to labor down. O: AAOx3, NAD WA gravid female VSS, afebrile EFM: BL 150bpm, +accels, no decels, mod irma TOCO: UCs q2-3 min on 7mU/min of Pitocin SVE per RN: 10/100/0 A: 22 y/o @ 38w2d, induction of labor for intrahepatic cholestasis of s/p effective prostaglandin cervical ripening GBS pos on IPAP, SROM x16 hours, afebrile FHTs cat I 2nd stage of labor Adequate pain control w/ epidural anesthesia P: 1. Continue PCN per protocol for IPAP 2. Continue BID ursodiol dosing until delivered 3. Continue to titrate Pitocin per protocol to maintain adequate labor pattern 4. Labor down x2 hours or until spontaneous urge to push 5. Throne position to facilitate descent 6. Anticipate
[2018-06-09] MEDS ORDERED: OXYTOCIN/SODIUM CHLORIDE 500 ML IV SCH (20:20)
--- NOTE | 2018-06-09 20:50 | DELIVERY NOTE ---
Delivery Note - Labor Labor: positive: Induced by oxytocin - Infant Delivery Method Delivery Method: positive: Spontaneous vaginal delivery - Cervical Ripening Method Cervical Ripening Method: positive: Misoprostil (x3 doses to 4cm dilatation) - Presentation Presentation: positive: Vertex, Compound (R hand), TL - right occiput anterior - Nuchal Cord Nuchal Cord: positive: None - Anesthetic Anesthetic Type: - Amniotic Fluid Description Amniotic Fluid Description: positive: Clear - Episiotomy Type Episiotomy Type: positive: None - Laceration Laceration: positive: 2nd degree, Vaginal - Suture Suture Type: positive: Vicryl Suture Size: positive: 2-0 - Delivery Outcome Delivery Outcome: positive: Livebirth - [place] : positive: Placed in direct skin contact with mother, Stimulated, Warmed, Warmer used sex: positive: Male - Cord Cord: positive: 3 vessels - Placenta Placenta: positive: Intact, Spontaneous - Estimated Blood Loss Estimated Blood Loss (in cc): 200 - Delivery Comments (Free Text/Narrative) Delivery Comments (Free Text/Narrative): Ann Fischer is a 22 y/o [id number] who presented for preinduction cervical ripening @ 38w1d for intrahepatic cholestasis of w/ TBA 21 & normal LFTs, dx'ed @ 38 weeks' gestation. She received 3 doses of 50mcg misoprostol buccally & experienced SROM for CAF @ 0130, for a total ruptured duration of 18 hours, 48 minutes. She was GBS positive & received adequate PCN prophylaxis t/o the course of labor. She entered active labor @ 0330 & requested epidural anesthesia @ 0800. Her epidural placement was challenging & required much manipulation &, finally, removal & replacement, to achieve adequate pain control. She received Pitocin augmentation beginning @ 6cm dilatation to a maximum infusion rate of 7mU/min & made progressive cervical change from there. She had an isolated elevated temperature but no persistent fever t/o labor. FHTs were monitored electronically t/o the first stage & were found to be consistently cat I-II. She was found to be complete @ 1730, for a total first stage duration of 14 hours. She labored down until she could not tolerate the contraction intensity & then began to push beginning @ 1815 to viable male in TL position w/ compound R hand & tight shoulders over an intact perineum @ 2018, for a total 2nd stage duration of 2 hours, 48 minutes & a total active pushing duration of 2 hours, 3 minutes. Infant vigorous w/ spontaneous, lusty cry. Placed to maternal abd for drying/stim. Delayed cord clamping until cessation of pulsation, then cord clamped x2 by CNM, cut by FOB. 3VC noted, cord blood obtained. Cord segment obtained for gases secondary to tachycardia over the last several minutes of pushing & elevated temperature. Apgars 7/9. Active management of the third stage w/ Pitocin in IV fluids. Placenta del spontaneously & intact, Rocky, @ 2022, for a total 3rd stage duration of 5 minutes. FF @ U. Vagina & perineum inspected & 2nd degree introital laceration noted; repaired s/p infiltration of 10mL 1% lidocaine w/ 2- 0 vicryl. Hemostatic & well-approximated. EBL 200mL. Mother & stable. Placenta to pathology for fever/tachycardia. Infant nuzzling @ breast w/in 15 minutes of delivery; plans to breastfeed.
[2018-06-09] MEDS ORDERED: MAGNESIUM HYDROXIDE 2,400 MG/30 ML UDC PO PRN (20:51)
[2018-06-09] MEDS ORDERED: HYDROCORTISONE/PRAMOXINE 10 GM PR PRN (20:51)
[2018-06-09] MEDS: IBUPROFEN 800 MG TABLET PO SCH (22:08)
[2018-06-09] MEDS: ACETAMINOPHEN 500 MG TABLET PO SCH (22:08)
[2018-06-10] MEDS: IBUPROFEN 800 MG TABLET PO SCH ×4 (03:55→22:44)
[2018-06-10] MEDS: DOCUSATE SODIUM 100 MG CAPSULE PO SCH ×3 (05:31→22:44)
[2018-06-10] MEDS ORDERED: LIDOCAINE 1% 50 ML MDV ONE (06:00)
[2018-06-10] MEDS: HYDROCORTISONE 1% CREAM 28 GM TUBE PR PRN (06:05)
[2018-06-10] MEDS: WITCH HAZEL/GLYCERIN 1 EACH MED..PAD TOP PRN (06:05)
[2018-06-10] MEDS: ACETAMINOPHEN 500 MG TABLET PO SCH ×2 (07:51→16:08)
--- NOTE | 2018-06-10 08:01 | ANESTHESIA POST OP EVALUATION ---
Anesthesia Post Eval - Post Anesthesia Eval Anesthesia Complications: positive: None (Patient reports she had adequate co ntrol of labor pain with second epidural placement. Denies any residual effects or headache. Full motor function has returned.)
--- NOTE | 2018-06-10 14:17 | PROVIDER PROGRESS NOTE ---
Subjective - Prog Note Date Prog Note Date: 06/10/18 Prog Note Time: 14:00 - Subjective Pt reports feeling: Improved Subjective: Ann is doing well. She is ambulating & voiding w/o difficulty or discomfort. She is passing flatus & tolerating a regular diet. She is exclusively w/ excellent latch, when the baby will wake to do it. She reports no nipple or breast discomfort. She reports minimal lochia rubra. She feels positively about her experience, except that she wishes her epidural had been more effective earlier in her labor process. She now reports adequate pain control w/ non-opioid analgesia. Objective - Vital Signs/Intake & Output Reviewed Vital Signs: Yes Vital Signs: Vital Signs x48h Temp Pulse Resp BP Pulse Ox 06/10/18 12:50 36.7 C 88 16 117/63 100 06/10/18 08:09 78 17 117/69 98 06/10/18 07:50 36.6 C Intake & Output: Intake & Output 06/07/18 06/08/18 06/09/18 06/10/18 23:59 23:59 23:59 23:59 Intake Total 652 1571 Output Total 350 1000 Balance 652 1221 -1000 - Objective General Appearance: positive: No acute distress, Alert Eyes Bilateral: positive: PERRL Respiratory: positive: Chest non-tender, No respiratory distress, Breath sounds nml Cardiovascular: positive: Regular rate & rhythm, No murmur, No gallop Abdomen: positive: Non-tender, No distention, Other (FF U-1) Skin: positive: Color nml, No rash, Warm, Dry Extremities: positive: Non-tender, Full ROM, Nml appearance Neurologic/Psychiatric: positive: Oriented x3, CN's nml (2-12), Motor nml, Sensation nml, Mood/affect nml Comments/Other: Nipples b/l intact & everted; colostrum readily expressible. - Lab Results Fish Bones: 06/08/18 09:24 06/08/18 09:24 ABX Reporting Has patient been on IV antibiotics over the past 48 hours?: Yes Assessment/Plan - Problem List (1) (normal spontaneous vaginal delivery) Impression: 22 y/o s/p w/ vaginal laceration w/ repair 06/09, PPD #1 Normal uterine involution Adequate pain control w/ non-opioid analgesia well Rh neg w/ Rh positive infant P: 1. continue routine pp care 2. support provided & to continue in ongoing fashion 3. Rhogam 300mcg IM x1 now 4. Anticipate d/c home PPD#2
[2018-06-10] MEDS ORDERED: RHO(D) IMMUNE GLOBULIN 300 MCG SYRINGE IM ONE (15:00)
[2018-06-11] MEDS: ACETAMINOPHEN 500 MG TABLET PO SCH ×2 (01:11→09:16)
[2018-06-11] MEDS: WITCH HAZEL/GLYCERIN 1 EACH MED..PAD TOP PRN (01:11)
--- NOTE | 2018-06-11 09:04 | PROVIDER PROGRESS NOTE ---
Subjective - Prog Note Date Prog Note Date: 06/11/18 Prog Note Time: 09:00 - Subjective Pt reports feeling: Improved Subjective: Patient sitting in bed, receiving instructions from RN Lilo RE care of the baby. Ann doing well. Ambulating and tolerating a regular diet. Pain controlled with po meds. Urinating without difficulty, lochia normal. Desires to go home. Objective - Vital Signs/Intake & Output Reviewed Vital Signs: Yes Vital Signs: Vital Signs x48h Temp Pulse Resp BP Pulse Ox 06/11/18 08:16 98.1 F 75 17 114/78 96 06/11/18 01:25 98.1 F 74 17 113/66 98 Intake & Output: Intake & Output 06/08/18 06/09/18 06/10/18 06/11/18 23:59 23:59 23:59 23:59 Intake Total 652 2071 Output Total 350 1000 Balance 652 1721 -1000 - Objective General Appearance: positive: No acute distress Eyes Bilateral: positive: Normal inspection Abdomen: positive: Non-tender (Firm fundus) Neurologic/Psychiatric: positive: Oriented x3 - Lab Results Fish Bones: 06/08/18 09:24 06/08/18 09:24 Assessment/Plan - Problem List (1) (normal spontaneous vaginal delivery) Impression: 22 yo S/p 06/09/2018, PPD #2 Normal course Discharge to home Follow up with Branden in 1 week OTC Motrin and Tylenol PRN Call for worsening fevers, chills, abdominal pain or vaginal bleeding. [phone] Discharge Plan Disposition: Home, Self Care Condition: Good Diet: Regular Activity Restrictions: Activity as Tolerated (No lifting greater than a gallon of milk) Shower Restrictions: No No Smoking: If you smoke, Please STOP! Call for help. Follow-up with: Joellen Schwartz ARNP [Primary Care Provider] -
[2018-06-11] MEDS: IBUPROFEN 800 MG TABLET PO SCH (09:15)
[2018-06-11] MEDS: DOCUSATE SODIUM 100 MG CAPSULE PO SCH (09:16)
--- NOTE | 2018-06-11 11:03 | DISCHARGE SUMMARY ---
Physician: Cecy Grey DO FACOG DATE OF ADMISSION: 06/08/2018 DATE OF DISCHARGE: 06/11/2018 DIAGNOSES ON ADMISSION 1. A 22-year-old G2, P0-0-1-0, with a 38-1/7-week intrauterine . 2. Cholestasis of . 3. Cervix remote from delivery. DIAGNOSES ON DISCHARGE 1. A 22-year old G2, P1-0-1-1, status post spontaneous vaginal delivery on 06/09/2018. 2. Normal recovery. BRIEF HISTORY: The patient is at patient at [facility]. She has been seen consistently by the midwives. At 37 weeks' gestation, the patient was diagnosed with cholestasis of and then was subsequently induced at 38 weeks. HOSPITAL COURSE: The patient received Cytotec for cervical ripening, specifically misoprostol 50 mcg buccally every 4 hours. She also continued on her Ursodiol 500 mg b.i.d. Finally, the patient did receive IV penicillin secondary to being positive for GBS. The patient was noted to spontaneously rupture clear fluid on 06/09/2018 at about 1:30 in the morning. She had an epidural for pain control, but unfortunately the first one did not work. She later had it replaced and it finally was working well. The patient also received Pitocin for augmentation. She spontaneously delivered a viable male with Apgars of 7 and 9 at 1 and 5 minutes respectively. Baby weighed 3870. There were no delivery complications. The patient's course was unremarkable. She is ambulating and tolerating a regular diet. The patient is urinating without difficulty, and her pain is controlled with oral medications. Her lochia is described as normal. The patient verbalizes her desire to go home today. The patient will be discharged home today, postop day #2. She has been counseled to take [id number] Motrin and Tylenol for pain control. She is to see Branden in 1 week for routine followup. The patient has been instructed to call should she have any worsening fevers, chills, abdominal pain or vaginal bleeding. TD: 06/11/2018 09:23 AUTUMN
[2018-06-11 12:26] VITALS: BP 121/69
[2018-06-11] MEDS: HYDROCORTISONE 1% CREAM 28 GM TUBE PR PRN (12:47)
--- NOTE | 2018-06-11 14:26 | Labor Flowsheet ---
Labor Flowsheet Datetime Report Generated by CPN: 06/11/2018 14:26 Datetime: 06/10/2018 19:56 VITAL SIGNS NBP Sys/Eileen/Mean (mmHg): 124 : 67 : 79 Pulse: 88 Datetime: 06/10/2018 05:35 Respirations: 18 SpO2 (%): 99 Temperature (C): 36.9 Temperature Route: Oral Datetime: 06/09/2018 20:24 Stage of : Recovery Datetime: 06/09/2018 20:18 ASSESSMENT A Monitor Mode: External US FHR Baseline Rate : 165 FHR Baseline Changes: Tachycardia Variability: Moderate 6-25 bpm Accelerations: 15X15 Decelerations: Variable Category: Category II Datetime: 06/09/2018 19:59 Comments: intermittent molded goods spot picker while pushing. Provider at bedside. Datetime: 06/09/2018 19:45 Frequency (min): 2-4 Duration (sec): 90-120 Datetime: 06/09/2018 19:30 LaborFlag: Antepartum Datetime: 06/09/2018 19:15 UTERINE ACTIVITY Monitor Mode: External Quality: Strong Pattern: Normal: <= 5 Contractions in 10 Minutes Resting Tone (Palpate): Relaxed Contraction Comments: pushing well with contractions Datetime: 06/09/2018 18:15 Oxygen Method: Room Air Datetime: 06/09/2018 17:35 Patient Care Comments: LAND CLASSIFIER updated Datetime: 06/09/2018 17:30 VAGINAL EXAM Dilatation (cm): 10.0 Effacement (%): 100 Station: 1 Exam by: C. Gambs RN Datetime: 06/09/2018 17:25 Communication Comments: munson out, 350ml ramiro urine noted Datetime: 06/09/2018 16:56 Hygiene: Niru Care Datetime: 06/09/2018 16:39 Patient Position/Activity: Right Extreme Datetime: 06/09/2018 16:30 MEDICATIONS Pitocin (milliunits): Increased to @ 6 Datetime: 06/09/2018 14:21 Pain Assessment Comments: Pt. sleeping Datetime: 06/09/2018 13:50 Pain Presence: None/Denies Datetime: 06/09/2018 13:34 Anesthesia Comments: Humberto LAND CLASSIFIER in room Datetime: 06/09/2018 13:26 PAIN Pain Scale: 0 Pain Type: N/A Pain Relief Measures: Epidural Given Pain Coping: Talking Through Contractions Datetime: 06/09/2018 13:25 Monitor Interventions for UA: Apollo Adjusted Monitor Interventions for FHR: Ultrasound Adjusted Datetime: 06/09/2018 13:14 Vaginal Bleeding: Normal Show Cervix, Consistency: Soft Cervix, Position: Midposition Procedures: Sterile Vag Exam I/O Interventions: Munson Cath Inserted Datetime: 06/09/2018 12:30 Actions for Decelerations: Side to Side Datetime: 06/09/2018 11:31 Pain Location: Back; Left Groin Datetime: 06/09/2018 08:18 ANESTHESIA Epidural Procedure: Test Dose Datetime: 06/09/2018 07:33 COMMUNICATION Communication: Provider at Bedside Datetime: 06/09/2018 06:50 Comfort Measures: Hot Shower/Tub/Spa Datetime: 06/09/2018 01:54 Membrane Status: Ruptured Membranes Rupture Method: Spontaneous Amniotic Fluid Color: Clear Amniotic Fluid Amount: Moderate Amniotic Fluid Odor: Normal Nitrazine: Positive Datetime: 06/08/2018 19:10 PATIENT CARE IV/Blood Work: IV Saline Locked Datetime: 06/08/2018 16:35 Medication Comments: ursidiol 500 mg Datetime: 06/08/2018 15:47 Strip Reviewed by: CNM Milagrosa Datetime: 06/08/2018 14:03 Antibiotics: Penicillin IV (Units) @ 2.5 Datetime: 06/08/2018 14:02 Cervical Ripening Agents: Cytotec @ 50 Datetime: 06/08/2018 13:00 MATERNAL ASSESSMENT Level of Consciousness: Fully Conscious Headache: Denies Nausea/Vomiting: Denies
== END 2018-06-11 14:00 | disposition home or self-care (01) | DRG 805 ==
LOC: WFO 08:08 → FBP 08:09 → WFO 09:06 → FBP 09:07 → OBSVTOIN 06-09 02:13 → FBP 06-10 22:07
PROVIDERS: ADMIT Registered Nurse; ATTEND Registered Nurse
PROC: 10E0XZZ Delivery of Products of Conception, External Approach (ICD-10-PCS; principal; 2018-06-09)
PROC: 0KQM0ZZ Repair Perineum Muscle, Open Approach (ICD-10-PCS; 2018-06-09)
DX: O26.62 Liver and biliary tract disorders in childbirth (principal); K83.1 Obstruction of bile duct; Z37.0 Single live birth; O41.1230 Chorioamnionitis, third trimester, not applicable or unspecified; O99.824 Streptococcus B carrier state complicating childbirth; O70.1 Second degree perineal laceration during delivery; O26.893 Other specified pregnancy related conditions, third trimester; Z67.41 Type O blood, Rh negative; Z3A.38 38 weeks gestation of pregnancy
CPT/HCPCS: 36415; 80053; 85025; 96365; 96366

== ENCOUNTER 2018-08-06 15:21 | Outpatient (CLI) | payer OTHER | END 2018-08-06 15:22 | disposition home or self-care (01) | LOC: LAB 15:21 | PROVIDERS: ATTEND Registered Nurse | DX: Z00.00 Encounter for general adult medical examination without abnormal findings (principal); Z12.4 Encounter for screening for malignant neoplasm of cervix | CPT/HCPCS: 36415; 84443 ==

== ENCOUNTER 2018-12-03 08:00 | Outpatient (CLI) | payer OTHER | END 2018-12-03 23:59 | disposition home or self-care (01) | LOC: LAB.R 08:00 | PROVIDERS: ATTEND Physician Assistant | DX: J02.9 Acute pharyngitis, unspecified (principal) | CPT/HCPCS: 87070 ==